=== PATIENT | male | born 1990 | race Caucasian/White ===

== ENCOUNTER 2020-07-15 00:14 | Observation (INO) ==
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
[2020-07-15] MEDS ORDERED: ONDANSETRON INJ 2 MG/ML 2 ML VIAL IV STA (01:17)
[2020-07-15] MEDS ORDERED: SODIUM CHLORIDE 0.9% 1,000 ML IV ONE ×2 (01:19→01:52)
[2020-07-15] MEDS ORDERED: METOPROLOL TARTRATE 1 MG/ML VIAL IV STA ×2 (01:24→01:52)
[2020-07-15 01:41] LABS: Basophils # (auto) 0.02 K/uL (0-0.2); Basophils % (auto) 0.1 %; Eosinophils # (auto) 0.03 K/uL (0-0.5); Eosinophils % (auto) 0.2 %; Hemoglobin 14.1 g/dL (14.0-18.0); Immature Granulocytes # (auto) 0.06 K/uL (0.00-0.02); Immature Granulocytes % (auto) 0.4 %; Lymphocytes # (auto) 1.05 K/uL (1.2-3.4); Lymphocytes % (auto) 6.6 %; Mean Corpuscular Hemoglobin 31.7 pg (25-34); Mean Corpuscular Hgb Conc 34.4 g/dL (32-36); Mean Corpuscular Volume 92.1 fL (80-100); Mean Platelet Volume 9.9 fL (7.4-10.4); Monocytes # (auto) 1.32 K/uL (0.11-0.59); Monocytes % (auto) 8.3 %; Neutrophils # (auto) 13.35 K/uL (1.4-6.5); Neutrophils % (auto) 84.4 %; Platelet Count 338 K/uL (130-400); RDW Coefficient of Variation 12.1 % (11.5-14.5); RDW Standard Deviation 41.1 fL (36.4-46.3); Red Blood Count 4.45 M/uL (4.7-6.1); White Blood Count 15.83 K/uL (4.8-10.8)
[2020-07-15] MEDS ORDERED: METOPROLOL TARTRATE 1 MG/ML VIAL IV PRN ×2 (01:52→05:28)
[2020-07-15 01:57] LABS: BUN Creatinine Ratio 18.6 (10-20); Blood Urea Nitrogen 18 mg/dl (7-18); Calcium 8.8 mg/dl (8.5-10.1); Carbon Dioxide 33 mmol/L (21-32); Chloride 103 mmol/L (98-107); Creatinine Clr Calc Pharmacy 134.8 ml/min; Est GFR (African American) 116.3 ml/min; Est GFR (Non-African American) 100.4 ml/min; Glucose 127 mg/dl (70-99); Magnesium 2.4 mg/dl (1.8-2.4); Potassium 3.8 mmol/L (3.5-5.1); Sodium 141 mmol/L (136-145)
[2020-07-15 02:07] LABS: Troponin I < 0.015 ng/ml (0-0.045)
[2020-07-15] MEDS ORDERED: dilTIAZem HCl 5 MG/ML 5 ML VIAL IV STA ×2 (02:31→03:16)
[2020-07-15] MEDS ORDERED: STAT IV Infusion **Titration per Protocol STA (02:31)
[2020-07-15] MEDS ORDERED: dilTIAZem HCL 125 MG in DEXTROSE 5% 100 ML IV SCH (02:45)
[2020-07-15 02:47] LABS: Partial Thromboplastin Ratio 0.9; Prothrombin Time 10.1 Seconds (9.0-12.0)
[2020-07-15] MEDS ORDERED: dilTIAZem HCL 30 MG TAB PO ONE (03:16)
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
[2020-07-15] MEDS ORDERED: ACETAMINOPHEN 325 MG TAB PO PRN (04:46)
[2020-07-15] MEDS ORDERED: ONDANSETRON INJ 2 MG/ML 2 ML VIAL IV PRN (04:46)
[2020-07-15] MEDS: NSS + 20MEQ KCL 20 MEQ/1,000 ML BAG IV SCH ×3 (05:55→15:58)
[2020-07-15] MEDS: dilTIAZem HCL 30 MG TAB PO SCH ×3 (08:03→15:58)
--- NOTE | 2020-07-15 08:31 | XRay Report ---
XR chest 1V portable HISTORY: 30 years-old Male New onset Afib RVR acute atrial fibrillation COMPARISON: None TECHNIQUE: AP view of the chest FINDINGS: Cardiomediastinal and hilar silhouettes are within normal limits. There is no pneumothorax, pleural e ffusion, airspace consolidation or overt pulmonary edema. The bones of the chest appear grossly intac t. The imaged upper abdomen is unremarkable. IMPRESSION: No acute process. ACT 112: Negative or not required by law. The above report was generated using voice recognition software. It may contain grammatical, syntax o r spelling errors. Electronically signed by: Rivas López M.D. 07/15/2020 8:29 AM
[2020-07-15] MEDS ORDERED: FOLIC ACID 1 MG TAB PO SCH (09:00)
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
--- NOTE | 2020-07-15 10:28 | XCELERA ---
[id number]
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
[2020-07-15] MEDS ORDERED: LORazepam 1 MG TAB PO PRN (13:54)
[2020-07-15] MEDS ORDERED: THIAMINE HCL IV SCH (14:00)
[2020-07-15] MEDS ORDERED: THIAMINE HCL 500 MG in 0.9 % SODIUM CHLORIDE 100 ML IV SCH (14:15)
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
--- NOTE | 2020-07-16 00:19 | Electrocardiogram Report ---
Test Reason : Blood Pressure : / mmHG Vent. Rate : 145 BPM Atrial Rate : 159 BPM P-R Int : 000 ms QRS Dur : 092 ms QT Int : 306 ms P-R-T Axes : 000 064 020 degrees QTc Int : 475 ms Atrial fibrillation with rapid ventricular response Abnormal ECG No previous ECGs available Confirmed by Zan Bledsoe ([id number]) on 07/16/2020 12:19:09 AM Referred By: REFERRED SELF Confirmed By:Zan Bledsoe
--- NOTE | 2020-07-16 06:11 | Electrocardiogram Report ---
Test Reason : Blood Pressure : / mmHG Vent. Rate : 102 BPM Atrial Rate : 396 BPM P-R Int : 000 ms QRS Dur : 102 ms QT Int : 308 ms P-R-T Axes : 000 111 150 degrees QTc Int : 401 ms Atrial fibrillation with rapid ventricular response Limb lead reversal suspected Abnormal ECG When compared with ECG of 15-JUL-2020 01:23, Limb lead reversal is now present Confirmed by Zan Bledsoe ([id number]) on 07/16/2020 6:11:17 AM Referred By: REFERRED SELF Confirmed By:Zan Bledsoe
[2020-07-16] MEDS ORDERED: THIAMINE HCL 100 MG TAB PO SCH (09:00)
== END 2020-07-15 16:40 | disposition left against medical advice (07) ==
LOC: 2S 00:14 → ED 00:14 → SUATTDRO 03:22 → 2S 04:30